=== PATIENT | male | born 1945 | race Caucasian/White ===

== ENCOUNTER 2024-06-13 18:02 | Inpatient (IN) | payer OTHER, MEDICAID ==
[~2024-06-13] VITALS: Ht 170.2 cm; Wt 81.6 kg
[2024-06-13 18:04] VITALS: BP 94/61; PULSE 95; RESP 25; TEMP 98.6; O2SAT 93
[2024-06-13 18:45] LABS: BASOPHILS # (AUTO) 0.1 K/uL (0.00-0.22); BASOPHILS % (AUTO) 0.5 % (0.0-2.0); EOSINOPHILS % (AUTO) 0.3 % (0.0-4.0); HEMATOCRIT 41.8 % (36-52); HEMOGLOBIN 13.6 g/dL (12.0-18.0); LYMPHOCYTES # (AUTO) 1.2 K/uL (2.0-11.5); MEAN CORPUSCULAR HEMOGLOBIN 30 pg (27-31); MEAN CORPUSCULAR HGB CONC 33 g/dL (33-37); MEAN CORPUSCULAR VOLUME 91.8 fL (80-94); MONOCYTES # (AUTO) 0.9 K/uL (0.8-1.0); MONOCYTES % (AUTO) 6.7 % (1.7-9.3); NEUTROPHILS # (AUTO) 11.9 K/uL (1.8-7.7); NEUTROPHILS % (AUTO) 84.2 % (42.2-75.2); PLATELET COUNT (AUTO) 207 K/uL (140-450); RED BLOOD CELL COUNT(AUTO) 4.55 MIL/uL (4.20-6.10); RED CELL DISTRIBUTION WIDTH 15.4 % (11.6-13.7); WHITE BLOOD COUNT (AUTO) 14.1 K/uL (4.8-10.8)
[2024-06-13 18:59] LABS: LYMPHOCYTES % (AUTO) 8.3 % (20.5-51.1)
[2024-06-13 19:12] LABS: ANION GAP 9.3 (8-16); CALCIUM 8.3 mg/dL (8.5-10.1); CARBON DIOXIDE 29.2 mmol/L (21-32); CHLORIDE 113 mmol/L (98-107); GLUCOSE 145 mg/dL (74-106); POTASSIUM 3.5 mmol/L (3.5-5.1); SODIUM SERUM 148 mmol/L (136-145); UREA NITROGEN, BLOOD 23 mg/dL (7-18)
[2024-06-13 19:21] LABS: LACTIC ACID 1.6 mmol/L (0.4-2.0)
[2024-06-13] MEDS ORDERED: cefTRIAXone 1,000 MG VIAL ONE (19:44)
[2024-06-13] MEDS: cefTRIAXone 1,000 MG in DEXT 5% MINI-BAG PLUS 50 ML IV ONE (20:01)
[2024-06-13 20:06] LABS: APPEARANCE,URINE CLEAR (CLEAR); BILIRUBIN,URINE NEGATIVE (NEGATIVE); BLOOD, URINE NEGATIVE (NEGATIVE); COLOR,URINE YELLOW (YELLOW); LEUKOCYTE ESTERASE ,URINE NEGATIVE (NEGATIVE); NITRITE, URINE NEGATIVE (NEGATIVE); PH,URINE 5.5 (5.0-9.0); PROTEIN,URINE NEGATIVE (NEGATIVE); UGLUCOSE NEGATIVE (NEGATIVE); UROBILINOGEN,URINE 0.2 EU/dL (0.2 - 1)
[2024-06-13 20:20] LABS: BACTERIA,URINE FEW /HPF (None Seen); MUCUS,URINE 2+ /LPF (None Seen); RBC,URINE 0-5 /HPF (0-5); SQUAMOUS EPITHELIAL CELL,UR 0-3 (FEW) /LPF (0-3 (FEW)); WBC,URINE 0-5 /HPF (0-5)
[2024-06-13] MEDS ORDERED: ACETAMINOPHEN 325 MG TAB PO PRN (21:00)
[2024-06-13] MEDS ORDERED: ONDANSETRON 4 MG/2 ML VIAL IVP PRN (21:00)
[2024-06-13 21:01] LABS: FLU A ANTIGEN negative (NEGATIVE); FLU B ANTIGEN NEGATIVE (NEGATIVE)
[2024-06-13] MEDS ORDERED: FAMO-90 GT (21:17)
[2024-06-13] MEDS ORDERED: CARB1TAB37 GT (21:17)
[2024-06-13] MEDS ORDERED: FERR324T11 GT (21:17)
[2024-06-13] MEDS ORDERED: AMLO10TA GT (21:17)
[2024-06-13] MEDS ORDERED: LISI40TA8 GT (21:17)
[2024-06-13] MEDS ORDERED: ATOR40TA40 GT (21:17)
[2024-06-13] MEDS ORDERED: QUET25TA GT (21:17)
[2024-06-13] MEDS ORDERED: MUC600 GT (21:17)
[2024-06-13 21:19] VITALS: PULSE 91; RESP 21; O2SAT 95
[2024-06-13 22:00] VITALS: BP 115/76; PULSE 84; PULSE 87; RESP 18; RESP 22; TEMP 97; O2SAT 96
[2024-06-14] VITALS (12 sets, daily range): BP systolic 112–159; BP diastolic 68–89; PULSE 62–94; RESP 18–22; TEMP 97–97.8; O2SAT 93–99
[2024-06-14 05:09] LABS: BASOPHILS % (AUTO) 0.3 % (0.0-2.0); EOSINOPHILS # (AUTO) 0.1 K/uL (0-0.4); EOSINOPHILS % (AUTO) 0.8 % (0.0-4.0); HEMATOCRIT 41.1 % (36-52); HEMOGLOBIN 13.5 g/dL (12.0-18.0); LYMPHOCYTES # (AUTO) 1.5 K/uL (2.0-11.5); LYMPHOCYTES % (AUTO) 13.2 % (20.5-51.1); MEAN CORPUSCULAR HEMOGLOBIN 30 pg (27-31); MEAN CORPUSCULAR HGB CONC 33 g/dL (33-37); MEAN CORPUSCULAR VOLUME 91.8 fL (80-94); MONOCYTES # (AUTO) 0.8 K/uL (0.8-1.0); NEUTROPHILS # (AUTO) 8.9 K/uL (1.8-7.7); NEUTROPHILS % (AUTO) 78.7 % (42.2-75.2); PLATELET COUNT (AUTO) 190 K/uL (140-450); RED BLOOD CELL COUNT(AUTO) 4.48 MIL/uL (4.20-6.10); RED CELL DISTRIBUTION WIDTH 15.5 % (11.6-13.7); WHITE BLOOD COUNT (AUTO) 11.3 K/uL (4.8-10.8)
[2024-06-14 05:17] LABS: ANION GAP 8.9 (8-16); CALCIUM 8.7 mg/dL (8.5-10.1); CARBON DIOXIDE 30.5 mmol/L (21-32); CHLORIDE 114 mmol/L (98-107); CREATININE 0.9 mg/dL (0.6-1.3); GLUCOSE 105 mg/dL (74-106); POTASSIUM 3.4 mmol/L (3.5-5.1); SODIUM SERUM 150 mmol/L (136-145); UREA NITROGEN, BLOOD 20 mg/dL (7-18)
[2024-06-14] MEDS: DEXT 5% / NACL 0.45% 1,000 ML IV SCH (05:17)
[2024-06-14] MEDS: DOCUSATE SODIUM 100 MG GELCAP PO SCH (08:18)
[2024-06-15] VITALS (12 sets, daily range): BP systolic 127–156; BP diastolic 70–90; PULSE 64–83; RESP 18–19; TEMP 97.3–97.9; O2SAT 92–100
[2024-06-15 05:32] LABS: BASOPHILS % (AUTO) 0.5 % (0.0-2.0); EOSINOPHILS # (AUTO) 0.1 K/uL (0-0.4); HEMATOCRIT 35.9 % (36-52); LYMPHOCYTES # (AUTO) 1.7 K/uL (2.0-11.5); LYMPHOCYTES % (AUTO) 24.9 % (20.5-51.1); MEAN CORPUSCULAR HEMOGLOBIN 30 pg (27-31); MEAN CORPUSCULAR HGB CONC 33 g/dL (33-37); MEAN CORPUSCULAR VOLUME 90.5 fL (80-94); MONOCYTES # (AUTO) 0.6 K/uL (0.8-1.0); MONOCYTES % (AUTO) 8.9 % (1.7-9.3); NEUTROPHILS # (AUTO) 4.2 K/uL (1.8-7.7); NEUTROPHILS % (AUTO) 63.7 % (42.2-75.2); PLATELET COUNT (AUTO) 179 K/uL (140-450); RED BLOOD CELL COUNT(AUTO) 3.97 MIL/uL (4.20-6.10); RED CELL DISTRIBUTION WIDTH 15.2 % (11.6-13.7); WHITE BLOOD COUNT (AUTO) 6.7 K/uL (4.8-10.8)
[2024-06-15 05:43] LABS: ANION GAP 9.3 (8-16); CALCIUM 8.2 mg/dL (8.5-10.1); CARBON DIOXIDE 30.7 mmol/L (21-32); CHLORIDE 113 mmol/L (98-107); CREATININE 0.8 mg/dL (0.6-1.3); GLUCOSE 119 mg/dL (74-106); SODIUM SERUM 150 mmol/L (136-145); UREA NITROGEN, BLOOD 18 mg/dL (7-18)
[2024-06-15] MEDS ORDERED: POTASSIUM CHLORIDE 40 MEQ, LIDOCAINE 1% 25 MG in NACL 0.9% 250 ML IV ONE (09:20)
[2024-06-15] MEDS: POTASSIUM CHLORIDE 40 MEQ, LIDOCAINE 1% 25 MG in NACL 0.9% 250 ML IV ONE (09:50)
[2024-06-15] MEDS ORDERED: FOAM DRESSING TP PRN (12:00)
[2024-06-15] MEDS ORDERED: HYDRAGUARD CREAM TP PRN (12:00)
[2024-06-15] MEDS: CARBIDOPA/LEVODOPA 25/100 MG 1 TAB GT SCH (13:34)
[2024-06-15] MEDS: HYDRAGUARD CREAM TP SCH (13:35)
[2024-06-15] MEDS: FOAM DRESSING TP SCH (13:35)
[2024-06-15] MEDS: GAUZE TP SCH (13:35)
[2024-06-15] MEDS: AMPICILLIN/SULBACTAM 3 GM in NACL 0.9% 100 ML IV SCH (13:36)
[2024-06-15] MEDS: ZOLPIDEM 5 MG TAB PO PRN (21:18)
[2024-06-15] MEDS: QUEtiapine FUMARATE 25 MG TAB GT SCH (21:19)
[2024-06-16] VITALS: BP 159/80; PULSE 70; RESP 20; TEMP 97.3; O2SAT 99
[2024-06-16 03:42] VITALS: O2SAT 92
[2024-06-16 04:00] VITALS: BP 126/76; PULSE 68; RESP 18; TEMP 97.1; O2SAT 96
[2024-06-16 05:25] LABS: BASOPHILS % (AUTO) 0.6 % (0.0-2.0); EOSINOPHILS # (AUTO) 0.1 K/uL (0-0.4); EOSINOPHILS % (AUTO) 2.5 % (0.0-4.0); HEMATOCRIT 38.6 % (36-52); HEMOGLOBIN 12.7 g/dL (12.0-18.0); LYMPHOCYTES # (AUTO) 1.8 K/uL (2.0-11.5); LYMPHOCYTES % (AUTO) 29.5 % (20.5-51.1); MEAN CORPUSCULAR HEMOGLOBIN 30 pg (27-31); MEAN CORPUSCULAR HGB CONC 33 g/dL (33-37); MEAN CORPUSCULAR VOLUME 90.7 fL (80-94); MONOCYTES # (AUTO) 0.5 K/uL (0.8-1.0); MONOCYTES % (AUTO) 7.7 % (1.7-9.3); NEUTROPHILS # (AUTO) 3.6 K/uL (1.8-7.7); NEUTROPHILS % (AUTO) 59.7 % (42.2-75.2); PLATELET COUNT (AUTO) 180 K/uL (140-450); RED BLOOD CELL COUNT(AUTO) 4.25 MIL/uL (4.20-6.10); RED CELL DISTRIBUTION WIDTH 15.3 % (11.6-13.7); WHITE BLOOD COUNT (AUTO) 6.1 K/uL (4.8-10.8)
[2024-06-16 06:27] LABS: ALANINE AMINOTRANSFERASE 100 U/L (12-78); ALBUMIN 2.3 g/dL (3.4-5.0); ALKALINE PHOSPHATASE 92 U/L (50-136); ASPARTATE AMINOTRANSFERASE 29 U/L (15-37); CALCIUM 8.2 mg/dL (8.5-10.1); CARBON DIOXIDE 26.3 mmol/L (21-32); CHLORIDE 111 mmol/L (98-107); CREATININE 0.8 mg/dL (0.6-1.3); GLUCOSE 97 mg/dL (74-106); MAGNESIUM 1.9 mg/dL (1.8-2.4); PHOSPHORUS 3.6 mg/dL (2.5-4.9); POTASSIUM 3.3 mmol/L (3.5-5.1); SODIUM SERUM 146 mmol/L (136-145); TOTAL BILIRUBIN 0.4 mg/dL (0.0-1.0); TOTAL PROTEIN, SERUM 5.9 g/dL (6.4-8.2); UREA NITROGEN, BLOOD 12 mg/dL (7-18)
[2024-06-16 08:00] VITALS: BP 118/81; PULSE 64; PULSE 67; RESP 20; TEMP 97.1; TEMP 97.7; O2SAT 95
[2024-06-16 08:06] VITALS: O2SAT 96
[2024-06-16] MEDS ORDERED: MUPI2CRE22 NS (08:39)
[2024-06-16] MEDS: FERROUS GLUCONATE 324 MG TAB GT SCH (08:57)
[2024-06-16] MEDS: ATORVASTATIN 20 MG TAB GT SCH (08:57)
[2024-06-16] MEDS: lisinopriL 20 MG TAB GT SCH (08:58)
[2024-06-16] MEDS: amLODIPine 5 MG TAB GT SCH (08:58)
[2024-06-16] MEDS: MUPIROCIN CA NASAL 2% 1GM TUBE NS SCH (08:59)
[2024-06-16] MEDS: CHLORHEXADINE GLUC 2% CLOTH TP SCH (09:06)
[2024-06-16] MEDS ORDERED: AMOX-999 PO (09:21)
[2024-06-16] MEDS: POTASSIUM CHLORIDE 40 MEQ, LIDOCAINE 1% 25 MG in NACL 0.9% 250 ML IV PRN (11:55)
[2024-06-16 12:00] VITALS: BP 132/81; PULSE 67; PULSE 69; RESP 20; TEMP 98; O2SAT 95
== END 2024-06-16 16:10 | DRG 871 ==
LOC: MED 18:02 → MTU 20:59
PROVIDERS: ADMIT Student in an Organized Health Care Education/Training Program; ATTEND Student in an Organized Health Care Education/Training Program
DX: A41.9 Sepsis, unspecified organism (principal); J18.9 Pneumonia, unspecified organism; J96.01 Acute respiratory failure with hypoxia; E87.0 Hyperosmolality and hypernatremia; E44.0 Moderate protein-calorie malnutrition; J44.0 Chronic obstructive pulmonary disease with (acute) lower respiratory infection; Z20.822 Contact with and (suspected) exposure to COVID-19; I10 Essential (primary) hypertension; G20.A1 Parkinson's disease without dyskinesia, without mention of fluctuations; E87.6 Hypokalemia; K21.9 Gastro-esophageal reflux disease without esophagitis; Z68.28 Body mass index [BMI] 28.0-28.9, adult
CPT/HCPCS: 36415; 71045; 80048; 80053; 81001; 83605; 83735; 83880; 84100; 84484; 85025; 87040; 87081; 87086; 93005; 96365; 97112; 97163-GP; 99285; J0295; J0696; J2001; J3480; J7030; Q0092